=== PATIENT | male | born 1955 | race African-American/Black ===

== ENCOUNTER 2019-09-01 15:21 | Emergency (ER) | payer BC ==
[~2019-09-01] VITALS: Ht 193 cm; Wt 84.0 kg
[2019-09-01] MEDS ORDERED: IBUPROFEN 600MG TABLET PO ONE (18:15)
[2019-09-01 19:28] VITALS: BP 128/85
== END 2019-09-01 19:30 | disposition home or self-care (01) ==
LOC: ER 15:21
DX: S20.211A Contusion of right front wall of thorax, initial encounter (principal); V49.59XA Passenger injured in collision with other motor vehicles in traffic accident, initial encounter; Y93.89 Activity, other specified; Y92.89 Other specified places as the place of occurrence of the external cause; Y99.8 Other external cause status
CPT/HCPCS: 71045; 99283

== ENCOUNTER 2024-07-14 16:00 | Emergency (ER) | payer MEDICARE, BC ==
[~2024-07-14] VITALS: Ht 177.8 cm; Wt 75.0 kg
[~2024-07-14 16:00] MED LIST: HYDR-4001 MT; KEPP500 MT
[2024-07-14 16:17] VITALS: TEMP 98.4; O2SAT 99
[2024-07-14] MEDS: LEVOFLOXACIN 250MG TABLET PO NR (20:09)
[2024-07-14] MEDS ORDERED: LEVO750T68 MT (21:54)
[2024-07-14 22:08] VITALS: BP 93/64; PULSE 83; RESP 16; O2SAT 95
== END 2024-07-14 22:19 | disposition home or self-care (01) ==
LOC: ER 16:00
DX: J18.9 Pneumonia, unspecified organism (principal)
CPT/HCPCS: 71045; 71250; 99284

== ENCOUNTER 2024-12-03 18:11 | Emergency (ER) | payer MEDICARE, BC ==
[~2024-12-03] VITALS: Ht 177.8 cm; Wt 66.0 kg
[~2024-12-03 18:11] MED LIST changes: +LEVO750T68 MT
[2024-12-03 18:22] VITALS: TEMP 36.7; O2SAT 99
[2024-12-03 20:18] LABS: CLARITY URINE CLEAR (CLEAR); COLOR URINE YELLOW (YELLOW); GLUCOSE URINE NEGATIVE (NEGATIVE); KETONES URINE NEGATIVE (NEGATIVE); LEUKOCYTE ESTERASE URINE NEGATIVE (NEGATIVE); NITRITE URINE NEGATIVE (NEGATIVE); OCCULT BLOOD URINE 3+ (NEGATIVE); PROTEIN URINE NEGATIVE (NEGATIVE); SPECIFIC GRAVITY URINE 1.022 (1.005-1.030)
[2024-12-03 20:33] LABS: BACTERIA URINE 1+; RBC URINE 25-50 /hpf (0-2); SQUAMOUS EPITHELIAL CELL URINE FEW /lpf (RARE/1+); WBC URINE 0-2 /hpf (0-2)
[2024-12-03] MEDS ORDERED: SENN-139 MT (23:42)
[2024-12-03] MEDS ORDERED: POLY17PO3 MT (23:42)
[2024-12-04 00:23] VITALS: BP 100/73; PULSE 52; RESP 12; O2SAT 99
== END 2024-12-04 00:30 | disposition home or self-care (01) ==
LOC: ER 18:11
DX: C61 Malignant neoplasm of prostate (principal); C79.51 Secondary malignant neoplasm of bone; R31.29 Other microscopic hematuria; K59.00 Constipation, unspecified; Z79.899 Other long term (current) drug therapy; Z98.890 Other specified postprocedural states
CPT/HCPCS: 74176; 81003; 99284

== ENCOUNTER → 2024-12-22 | Outpatient (CLI) | payer MEDICARE, BC ==
[~2024-12-22] MED LIST changes: +POLY17PO3 MT; +SENN-139 MT
== END | disposition home or self-care (01) ==
LOC: NM 08:12
PROVIDERS: ATTEND Internal Medicine Hematology & Oncology
DX: C61 Malignant neoplasm of prostate (principal); C79.51 Secondary malignant neoplasm of bone
CPT/HCPCS: 78306; A9503